=== PATIENT | male | born 1985 | race Hispanic/Latino ===

== ENCOUNTER 2018-04-15 16:11 | Emergency (ER) | payer OTHER ==
[2018-04-15 16:21] VITALS: O2SAT 100
[2018-04-15] MEDS ORDERED: Sodium Chloride 0.9% 1,000 ML IV SCH (17:00)
--- NOTE | 2018-04-15 17:08 | ED PDOC ---
HPI: Back Time Seen by Provider: 04/15/18 16:49 Chief Complaint (Nursing): Fever Chief Complaint (Provider): Back pain History Per: Patient History/Exam Limitations: no limitations Onset/Duration Of Symptoms: Days (3 weeks) Current Symptoms Are (Timing): Still Present Additional Complaint(s): Pt. with back pain b/l flank for approx 1 week with 3 weeks of penile burning and possible dysuria. Seen by urgent care and given cipro which did not help. Then started on bactrim and had a full UA, urine culture, GC and chlamydia evaluation which all came out negative. Pt. states he finished bactrim and had a bit of a reaction from it, but no relief of symptoms. Pt. has not taken any meds for it. Nausea mild, no vomit. No diarrhea, abd pain, weakness, leg pain , numbness, tingles, incontinence, constipation. No injury. 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 Cipro is finishing up now. Past Medical History Reviewed: Nursing Documentation, Vital Signs Vital Signs: Last Vital Signs Temp 98.7 F 04/15/18 16:18 Pulse 131 H 04/15/18 16:18 Resp 16 04/15/18 16:18 BP 161/87 H 04/15/18 16:18 Pulse Ox 100 04/15/18 16:18 - Medical History PMH: HTN (when upset or seeing doctors) - Surgical History Surgical History: No Surg Hx - Family History Family History: States: Unknown Family Hx - Social History Current smoker - smoking cessation education provided: No - Home Medications Home Medications: Ambulatory Orders Medication Instructions Recorded Methylprednisolone [Medrol Dose 4 mg PO DAILY #21 mg 11/12/16 Pack (21 tabs)] Ibuprofen [Motrin] 600 mg PO TID 7 Days tab 04/15/18 Nitrofurantoin Macrocrystals 100 mg PO BID #10 cap 04/15/18 [Macrobid] - Allergies Allergies/Adverse Reactions: Allergies Allergy/AdvReac Type Severity Reaction Status Date / Time Sulfa (Sulfonamide AdvReac PAIN Verified 04/15/18 16:18 Antibiotics) Review of Systems ROS Statement: Except As Marked, All Systems Reviewed And Found Negative Genitourinary Male: Positive for: Dysuria. Negative for: Scrotal Pain Musculoskeletal: Positive for: Back Pain Physical Exam - Reviewed Nursing Documentation Reviewed: Yes Vital Signs Reviewed: Yes - Physical Exam Appears: Positive for: Non-toxic, No Acute Distress Head Exam: Positive for: ATRAUMATIC, NORMAL INSPECTION, NORMOCEPHALIC Skin: Positive for: Normal Color, Warm, DRY Eye Exam: Positive for: EOMI, Normal appearance, PERRL ENT: Positive for: Normal ENT Inspection Neck: Positive for: Normal, Painless ROM, Supple Cardiovascular/Chest: Positive for: Regular Rate, Rhythm Respiratory: Positive for: CNT, Normal Breath Sounds Gastrointestinal/Abdominal: Positive for: Normal Exam, Soft. Negative for: Tenderness Male Genital Exam: Positive for: normal genitalia, other (no penile erythema or laceration; no dc; circumcised). Negative for: bleeding, erythema, scrotum tenderness (R), scrotum tenderness (L), testicular tenderness (R), testicular tenderness (L), urethral discharge Back: Positive for: L CVA Tenderness (mild), R CVA Tenderness (mild) Extremity: Positive for: Normal ROM. Negative for: Tenderness Neurologic/Psych: Positive for: Alert, Oriented - Laboratory Results Result Diagrams: 04/15/18 18:00 04/15/18 18:00 Interpretation Of Abn Labs: no acute - ECG O2 Sat by Pulse Oximetry: 100 Pulse Ox Interpretation: Normal - CT Scan/US ct Other Rad Studies (CT/US): Read By Radiologist Other Rad Interpretation: adenitis - Progress ED Course And Treament: 2109: Stable. AAOx3. Pain controlled. Toleratd PO. 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 Pt. to fu with clinic for cysts and possible uti. States he did some workups and not sure if that was causing issues. Disposition - Clinical Impression Clinical Impression: Back pain, UTI (urinary tract infection) - Patient ED Disposition Is Patient to be Admitted: No Counseled Patient/Family Regarding: Studies Performed, Diagnosis, Need For Followup, Rx Given - Disposition Referrals: [facility] [Outside] - 04/16/18 Disposition: Routine/Home Disposition Time: 21:12 Condition: STABLE Additional Instructions: Return if not better in 3 days. Prescriptions: Ibuprofen [Motrin] 600 mg PO TID 7 Days tab Nitrofurantoin Macrocrystals [Macrobid] 100 mg PO BID #10 cap Instructions: Urinary Tract Infection, Adult (DC), Low Back Pain (DC) Forms: [facility] (Lithuanian), [facility] ED School/Work Excuse
[2018-04-15 17:49] LABS: VENOUS BLOOD GAS BASE EXCESS 1.7 mmol/L (0.0-2.0); VENOUS BLOOD GAS PCO2 38 mmHg (40-60); VENOUS BLOOD GAS PO2 33 mm/Hg (30-55); VENOUS BLOOD PH 7.44 (7.32-7.43)
[2018-04-15 18:12] LABS: BASO % 0.3 % (0.0-2.0); EOS # 0.1 K/uL (0.0-0.7); EOS % 1.2 % (0.0-4.0); HEMOGLOBIN 14.1 g/dL (12.0-18.0); LYMPH # 1.1 K/uL (1.0-4.3); LYMPH % 14.1 % (20.0-40.0); MEAN CELL VOLUME 84.2 fl (80.0-94.0); MEAN CORPUSCULAR HEMOGLOBIN 27.8 pg (27.0-31.0); MEAN PLATELET VOLUME 7.4 fl (7.2-11.7); MONO # 0.5 K/uL (0.0-0.8); MONO % 6.9 % (0.0-10.0); NEUT % 77.5 % (50.0-75.0); NRBC % 0.1 % (0.0-0.0); RBC 5.08 Mil/uL (4.40-5.90); RED CELL DISTRIBUTION WIDTH 12.9 % (11.5-14.5); WHITE BLOOD COUNT 7.8 K/uL (4.8-10.8)
[2018-04-15] MEDS ORDERED: Sodium Chloride 0.9% 50 ML IV ONE (18:20)
[2018-04-15] MEDS ORDERED: Iohexol 300 100 ML IJ ONE (18:20)
[2018-04-15 18:22] LABS: ALB/GLOB RATIO 1.5 (1.0-2.1); ALBUMIN 4.7 g/dL (3.5-5.0); ALT/SGPT 34 U/L (21-72); AST/SGOT 27 U/L (17-59); BLOOD UREA NITROGEN 18 mg/dl (9-20); CALCIUM 9.1 mg/dL (8.4-10.2); GFR AFRICAN-AMERICAN > 60; GFR NON-AFRICAN AMERICAN > 60
[2018-04-15 18:38] LABS: PARTIAL THROMBOPLASTIN TIME 28.3 Seconds (25.6-37.1); PROTHROMBIN TIME 11.3 Seconds (9.8-13.1)
[2018-04-15 18:47] LABS: URINE BILIRUBIN NEGATIVE (NEGATIVE); URINE BLOOD NEGATIVE (NEGATIVE); URINE CLARITY CLEAR (Clear); URINE COLOR YELLOW (YELLOW); URINE GLUCOSE (UA) NEG (Normal); URINE LEUKOCYTE ESTERASE NEG Leu/uL (Negative); URINE PROTEIN NEGATIVE (NEGATIVE); URINE UROBILINOGEN 0.2-1.0 mg/dL (0.2-1.0)
[2018-04-15 23:21] VITALS: BP 141/73; PULSE 92; RESP 17; TEMP 98.9
--- NOTE | 2018-04-16 09:29 | CARD ---
APPROVED REPORT EKG Measurement Heart [id number] <Conclusion> Sinus tachycardia Biatrial enlargement Abnormal ECG
--- NOTE | 2018-04-16 10:26 | CT ---
PROCEDURE: CT Abdomen and Pelvis with contrast HISTORY: flank pain b/l uti COMPARISON: None. TECHNIQUE: Contrast dose: 95 mL Omnipaque 300 Radiation dose: Total exam DLP = 344.6 mGy-cm. This CT exam was performed using one or more of the following dose reduction techniques: Automated exposure control, adjustment of the mA and/or kV according to patient size, and/or use of iterative reconstruction technique. FINDINGS: LOWER THORAX: 3 mm right lower lobe sub fissural nodule (series 3, image 7). Heart size normal. Place LIVER: Unremarkable. No gross lesion or ductal dilatation. GALLBLADDER AND BILE DUCTS: Unremarkable. PANCREAS: Unremarkable. No gross lesion or ductal dilatation. SPLEEN: Unremarkable. ADRENALS: Unremarkable. No mass. KIDNEYS AND URETERS: 7 mm right interpolar too small to characterize hypodensity. 2.5 cm left interpolar parapelvic cyst. No hydronephrosis. No solid mass. VASCULATURE: Unremarkable. No aortic aneurysm. BOWEL: Unremarkable. No obstruction. No gross mural thickening. APPENDIX: No findings to suggest acute appendicitis. PERITONEUM: Unremarkable. No free fluid. No free air. LYMPH NODES: Unremarkable. No enlarged lymph nodes. BLADDER: Unremarkable. REPRODUCTIVE: Unremarkable. BONES: No acute fracture. OTHER FINDINGS: None. IMPRESSION: No acute abdominopelvic pathology.
== END 2018-04-15 21:35 | disposition home or self-care (01) ==
LOC: H.ER 16:11
DX: N39.0 Urinary tract infection, site not specified (principal); M54.9 Dorsalgia, unspecified; I11.9 Hypertensive heart disease without heart failure; I51.7 Cardiomegaly; Z88.2 Allergy status to sulfonamides
CPT/HCPCS: 74177; 80053; 81003; 82803; 83735; 84100; 85025; 85610; 85730; 87040; 87086; 93005; 96374; 99284; J1885; J7030; Q9967